=== PATIENT | female | born 1965 | race Caucasian/White ===

== ENCOUNTER 2020-02-25 17:12 | Emergency (ER) | payer BC ==
--- NOTE | 2020-02-25 19:16 | EDM.PDOC ---
<Antonia Mary - Last Filed: 02/25/20 19:21> ED HPI GENERAL MEDICAL PROBLEM - General Chief Complaint: Cardiovascular Problem Stated Complaint: IRREGULAR HEARTBEAT...PER PT Time Seen by Provider: 02/25/20 18:00 Source of Information: Reports: Patient, RN, RN Notes Reviewed History Limitations: Reports: No Limitations - History of Present Illness INITIAL COMMENTS - FREE TEXT/NARRATIVE: Patient presents to ER with complaint of palpitations in the chest that have lasted all day, beginning this morning. Patient denies chest pains or shortness of breath, denies any previous history or feelings of palpitations. Patient denies any recent illness, any past medical health history, or any medications on a daily basis. Onset: Today, Sudden Duration: Intermittent Location: Reports: Chest - Related Data Allergies Allergy/AdvReac Type Severity Reaction Status Date / Time No Known Allergies Allergy Verified 02/25/20 17:42 Home Meds: Home Meds . [No Known Home Meds] 02/25/20 [History] Past Medical History HEENT History: Reports: None Cardiovascular History: Reports: None Respiratory History: Reports: None Gastrointestinal History: Reports: None Genitourinary History: Reports: None SOCIAL SECURITY SPECIALIST History: Reports: None Musculoskeletal History: Reports: None Neurological History: Reports: None Psychiatric History: Reports: None Endocrine/Metabolic History: Reports: None Hematologic History: Reports: None Immunologic History: Reports: None Oncologic (Cancer) History: Reports: None Dermatologic History: Reports: None - Infectious Disease History Infectious Disease History: Reports: Chicken Pox - Past Surgical History Head Surgeries/Procedures: Reports: None Social & Family History - Tobacco Use Smoking Status *Q: Never Smoker Second Hand Smoke Exposure: No - Caffeine Use Caffeine Use: Reports: Coffee, Soda - Recreational Drug Use Recreational Drug Use: No ED ROS GENERAL - Review of Systems Review Of Systems: Comprehensive ROS is negative, except as noted in HPI. ED EXAM, GENERAL - Physical Exam Exam: See Below Exam Limited By: No Limitations General Appearance: Alert, WD/WN, No Apparent Distress Eye Exam: Bilateral Eye: EOMI, Normal Inspection Ears: Normal External Exam, Hearing Grossly Normal Nose: Normal Inspection Throat/Mouth: Normal Inspection, Normal Voice, No Airway Compromise Head: Atraumatic, Normocephalic Neck: Normal Inspection, Supple, Non-Tender, Full Range of Motion Respiratory/Chest: No Respiratory Distress, Lungs Clear, Normal Breath Sounds, No Accessory Muscle Use, Chest Non-Tender Cardiovascular: Normal Peripheral Pulses, No Edema, No Gallop, No JVD, No Murmur , No Rub, Irregularly Irregular Peripheral Pulses: 2+: Radial (L), Radial (R) GI/Abdominal: Normal Bowel Sounds, Soft, Non-Tender (Female) Exam: Deferred Rectal (Female) Exam: Deferred Back Exam: Normal Inspection, Full Range of Motion, NT Extremities: Normal Inspection, Normal Range of Motion, Non-Tender, Normal Capillary Refill, No Pedal Edema Neurological: Alert, Oriented, CN II-XII Intact, Normal Cognition, Normal Gait, Normal Reflexes, No Motor/Sensory Deficits Psychiatric: Normal Affect, Normal Mood, Anxious Skin Exam: Warm, Dry, Intact, Normal Color, No Rash Lymphatic: No Adenopathy Course - Vital Signs Last Recorded V/S: Last Vital Signs Temp 37.1 C 02/25/20 17:39 Pulse 87 02/25/20 17:39 Resp 16 02/25/20 17:39 BP 153/91 H 02/25/20 17:39 Pulse Ox 99 02/25/20 17:39 - Orders/Labs/Meds Orders: Active Orders 24 hr Category Date Time Status EKG Documentation Completion [RC] STAT Care 02/25/20 18:07 Active Labs: Laboratory Tests 02/25/20 02/25/20 Range/Units 18:40 18:40 WBC 6.5 (5.0-10.0) 10^3/uL RBC 4.79 (4.2-5.4) 10^6/uL Hgb 14.1 (12.0-16.0) g/dL Hct 42.4 (37.0-47.0) % MCV 88.5 (80-100) fL MCH 29.4 (27.0-34.0) pg MCHC 33.3 (33.0-35.0) g/dL Plt Count 279 (150-450) 10^3/uL Neut % (Auto) 62.7 (42.2-75.2) % Lymph % (Auto) 26.3 (20.5-50.1) % Burke % (Auto) 9.0 H (2-8) % Eos % (Auto) 1.7 (1.0-3.0) % Baso % (Auto) 0.3 (0.0-1.0) % Sodium 144 (136-145) mmol/L Potassium 3.4 L (3.5-5.1) mmol/L Chloride 106 (98-107) mmol/L Carbon Dioxide 28 (21-32) mmol/L Anion Gap 13.4 H (7-13) mEq/L BUN 15 (7-18) mg/dL Creatinine 0.86 (0.55-1.02) mg/dL Est Cr Clr Drug Dosing 73.68 mL/min Estimated GFR (MDRD) > 60 BUN/Creatinine Ratio 17.4 (No establ ref range) Glucose 106 H (74-99) mg/dL Calcium 8.9 (8.5-10.1) mg/dL Total Bilirubin 0.4 (0.2-1.0) mg/dL AST 22 (15-37) U/L ALT 24 (14-59) U/L Alkaline Phosphatase 93 (46-116) U/L Troponin I 0.019 (0.000-0.056) ng/mL Total Protein 6.8 (6.4-8.2) g/dL Albumin 3.9 (3.4-5.0) g/dL Globulin 2.9 Albumin/Globulin Ratio 1.3 TSH, Ultra Sensitive 2.00 (0.36-3.74) uIU/mL - Radiology Interpretation Free Text/Narrative:: Chest xray: FINDINGS: Lungs: Normal pulmonary expansion. Pulmonary vasculature grossly normal. No infiltrates. 5 mm calcified granuloma projecting in the posterior right basilar region. Pleural space: No pleural effusion. No pneumothorax. Heart/Mediastinum: Heart size normal. No tracheal/mediastinal shift. Bones/joints: Mild rightward convexity thoracic scoliosis. No acute osseous abnormalities are identified. IMPRESSION: No acute thoracic process. Thank you for allowing us to participate in the care of your patient. Dictated and Authenticated by: Santosh Grant MD 02/25/2020 6:33 PM Central Time ([place] & [place]) See rad report Departure - Departure Disposition: Home, Self-Care 01 Clinical Impression: Palpitations Instructions: Palpitations, [id number] Forms: ED Department Discharge Additional Instructions: 1) see clinic for STRESS TEST, HOLTER MONITOR, ECHOCARDIOGRAM 2) recheck if there is any change or concern Sepsis Event Note - Evaluation Sepsis Screening Result: No Definite Risk - Focused Exam Vital Signs: Vital Signs Temp Pulse Resp BP Pulse Ox 02/25/20 17:39 37.1 C 87 16 153/91 H 99 Date Exam was Performed: 02/25/20 Time Exam was Performed: 19:21 <Sonny Natarajan - Last Filed: 02/25/20 20:11> Course - Re-Assessments/Exams Free Text/Narrative Re-Assessment/Exam: 02/25/20 20:09 results discussed with pt who is feeling much better presently. states didn't sleep much last night and had to work today and heart started pounding hard. now all is gone and feels more relaxed Departure - Departure Time of Disposition: 20:10 Condition: Good Sepsis Event Note - Focused Exam Date Exam was Performed: 02/25/20 Time Exam was Performed: 20:09
[2020-02-25 19:40] LABS: ANION GAP 13.4 mEq/L (7-13); CHLORIDE,CL 106 mmol/L (98-107); SODIUM,NA 144 mmol/L (136-145)
== END 2020-02-25 20:23 | disposition home or self-care (01) ==
LOC: DL.ED 17:12
DX: R00.2 Palpitations (principal)
CPT/HCPCS: 36415; 71046; 80053; 84443; 84484; 85025; 93005; 99285-25